=== PATIENT | male | born 2000 | race Two or more races ===

== ENCOUNTER → 2024-06-12 | Outpatient (CLI) | payer OTHER ==
--- NOTE | 2024-06-12 13:13 | HMCIMG ---
Exam: Renal and bladder sonogram Reason: Renal colic, hematuria. FINDINGS: Right kidney is 11.8 x 4.9 x 5.6 cm, left 8.3 x 2.8 x 2.8 cm. Right kidney appears normal with no mass, stone or hydronephrosis. There is a large staghorn renal stone in the filling the left renal pelvis. There is no hydronephrosis. There is moderate to marked diffuse renal cortical thinning. Urinary bladder is well distended and appears normal. There is no wall thickening or mass. IMPRESSION: 1. Large staghorn calculus left kidney, the left kidney is also partially atrophic. 2. Normal-appearing right kidney and urinary bladder.
== END | disposition home or self-care (01) ==
LOC: RAH 11:09
PROVIDERS: ATTEND Family Medicine
DX: N20.0 Calculus of kidney (principal); N23 Unspecified renal colic; N26.1 Atrophy of kidney (terminal)
CPT/HCPCS: 76770